=== PATIENT | male | born 2000 | race Caucasian/White ===

== ENCOUNTER 2021-06-15 21:09 | Emergency (ER) | payer OTHER ==
[2021-06-15 21:16] VITALS: BP 121/80; PULSE 88; BMI 31.1
[2021-06-15 21:23] VITALS: TEMP 98.1
== END 2021-06-15 22:51 | disposition home or self-care (01) ==
LOC: JERFT 21:09
DX: S83.91XA Sprain of unspecified site of right knee, initial encounter (principal); S93.491A Sprain of other ligament of right ankle, initial encounter
CPT/HCPCS: 73562-TC-RT-FY; 73630-TC-RT-FY; 99284-25

== ENCOUNTER 2023-04-19 17:24 | Emergency (ER) | payer OTHER ==
[2023-04-19 17:38] VITALS: BP 147/74; PULSE 75; RESP 16; TEMP 98.2; BMI 29.7
[2023-04-19] MEDS ORDERED: IBUPROFEN 600 MG TABLET (FP) PO ONE ×2 (18:08→18:38)
[2023-04-19 18:59] LABS: EPI CELLS 6 /uL (0-25.1); HYALINE CASTS 0 /uL (0-3.1); PH,URINE 5.5 (5.0-8.0); URINE APPEARANCE CLEAR; URINE BACTERIA 20 /uL (0-1359); URINE BILIRUBIN NEGATIVE (NEGATIVE); URINE COLOR YELLOW; URINE GLUCOSE (UA) NEGATIVE (NEGATIVE); URINE KETONE NEGATIVE (NEGATIVE); URINE LEUK ESTERASE 1+ (NEGATIVE); URINE NITRITE NEGATIVE (NEGATIVE); URINE PROTEIN NEGATIVE (NEGATIVE); URINE RBC 6 /uL (0-23.9); URINE UROBILINOGEN 0.2 mg/dL (0.2-1.0); URINE WBC 120 /uL (0-25.8)
== END 2023-04-19 20:37 | disposition home or self-care (01) ==
LOC: JER 17:24
DX: N50.811 Right testicular pain (principal); N45.2 Orchitis; N39.0 Urinary tract infection, site not specified
CPT/HCPCS: 36415; 76870-TC; 81003; 87086; 87491; 87591; 99283-25